=== PATIENT | male | born 1960 | race Caucasian/White ===

== ENCOUNTER 2021-11-02 16:16 | Emergency (ER) | payer OTHER ==
[~2021-11-02] VITALS: Ht 170.2 cm; Wt 79.4 kg
[2021-11-02] MEDS ORDERED: NS IV 1000 ML 1,000 ML IV STA (16:58)
[2021-11-02] MEDS ORDERED: KETOROLAC 30 MG/ML VIAL IVP ONE (17:00)
--- NOTE | 2021-11-02 17:01 | ED Abdominal Pain ---
General Stated Complaint: RLQ PAIN Source of Information: Patient Exam Limitations: No Limitations History of Present Illness Date Seen by Provider: Nov 02, 2021 Time Seen by Provider: 17:00 Initial Comments Patient is a 60-year-old male presents ED with right lower quad abdominal pain. Pain started this morning described as a dull pain. Rates pain 7 out of 10. Pain has been constant. History of kidney stones and states he possibly passed 1 2 days ago on the left side and 2 weeks ago. Pain be increased over the past hour but has improved some. Able to urinate without any difficulties. Denies flank pain, diarrhea. Did have dry heaves right before arrival. Denies chest pain, shortness of breath, cough, headache, dizziness, visual changes. Denies taking thing at home for pain Allergies and Home Medications Allergies Coded Allergies: No Known Drug Allergies (Unverified , 11/02/21) Patient Home Medication List Home Medication List Reviewed: Yes Hydrocodone/Acetaminophen (Hydrocodone-Acetamin 5-325 mg) 5 Mg-325 Mg Tablet, 1 TAB PO Q4H PRN for PAIN-MODERATE (5-7) Prescribed by: LIYAH REESE on 11/02/211818 Ondansetron (Ondansetron Odt) 4 Mg Tab.rapdis, 4 MG PO Q4H Prescribed by: LIYAH REESE on 11/02/211818 Tamsulosin HCl (Flomax) 0.4 Mg Cap, 0.4 MG PO DAILY Prescribed by: LIYAH REESE on 11/02/211818 Review of Systems Review of Systems Constitutional: No chills, No diaphoresis, No malaise EENTM: No Blurred Vision, No Eye Pain Respiratory: Denies Cough, Denies Orthopnea Cardiovascular: Denies Chest Pain Gastrointestinal: Abdominal Pain; Denies Diarrhea; Nausea; Denies Vomiting Genitourinary: Denies Burning Musculoskeletal: No back pain, No joint pain Skin: No change in color, No change in hair/nails All Other Systems Reviewed Negative Unless Noted: Yes Physical Exam Vital Signs Capillary Refill : Height/Weight/BMI Height: '" Weight: lbs. oz. kg; BMI Method: General Appearance: WD/WN, no apparent distress HEENT: PERRL/EOMI, normal ENT inspection, TMs normal, pharynx normal Neck: non-tender, full range of motion, supple, normal inspection Respiratory: chest non-tender, lungs clear, normal breath sounds, no respiratory distress Cardiovascular: regular rate, rhythm, no edema, no gallop Gastrointestinal: normal bowel sounds, soft, no organomegaly, no pulsatile mass, tenderness (Right lower quadrant tenderness) Extremities: normal range of motion, non-tender, normal inspection, no pedal edema Back: normal inspection, no CVA tenderness Neurologic/Psychiatric: turret lathe tender II-XII nml as tested, no motor/sensory deficits, alert, normal mood/affect, oriented x 3 Skin: normal color, warm/dry Progress/Results/Core Measures Results/Orders Lab Results Laboratory Tests Test 11/02/21 16:55 11/02/21 17:05 Range/Units Urine Color YELLOW Urine Clarity CLEAR Urine pH 6.0 5-9 Urine Specific [place] >=1.030 1.016-1.022 Urine Protein NEGATIVE NEGATIVE Urine Glucose (UA) NEGATIVE NEGATIVE Urine Ketones TRACE H NEGATIVE Urine Nitrite NEGATIVE NEGATIVE Urine Bilirubin NEGATIVE NEGATIVE Urine Urobilinogen 0.2 < = 1.0 MG/DL Urine Leukocyte Esterase NEGATIVE NEGATIVE Urine RBC (Auto) TRACE-I H NEGATIVE Urine RBC 10-25 H /HPF Urine WBC NONE /HPF Urine Squamous Epithelial Cells NONE /HPF Urine Crystals NONE /LPF Urine Bacteria NEGATIVE /HPF Urine Casts NONE /LPF Urine Mucus NEGATIVE /LPF Urine Culture Indicated NO White Blood Count 15.9 H 4.3-11.0 10^3/uL Red Blood Count 4.86 4.30-5.52 10^6/uL Hemoglobin 15.2 13.3-17.7 g/dL Hematocrit 45 40-54 % Mean Corpuscular Volume 93 80-99 fL Mean Corpuscular Hemoglobin 31 25-34 pg Mean Corpuscular Hemoglobin Concent 34 32-36 g/dL Red Cell Distribution Width 13.4 10.0-14.5 % Platelet Count 201 130-400 10^3/uL Mean Platelet Volume 11.9 9.0-12.2 fL Immature Granulocyte % (Auto) 0 % Neutrophils (%) (Auto) 87 H 42-75 % Lymphocytes (%) (Auto) 8 L 12-44 % Monocytes (%) (Auto) 5 0-12 % Eosinophils (%) (Auto) 0 0-10 % Basophils (%) (Auto) 0 0-10 % Neutrophils # (Auto) 13.8 H 1.8-7.8 10^3/uL Lymphocytes # (Auto) 1.2 1.0-4.0 10^3/uL Monocytes # (Auto) 0.8 0.0-1.0 10^3/uL Eosinophils # (Auto) 0.0 0.0-0.3 10^3/uL Basophils # (Auto) 0.1 0.0-0.1 10^3/uL Immature Granulocyte # (Auto) 0.1 0.0-0.1 10^3/uL Neutrophils % (Manual) 89 % Lymphocytes % (Manual) 7 % Monocytes % (Manual) 3 % Eosinophils % (Manual) 0 % Basophils % (Manual) 1 % Band Neutrophils 0 % Blood Morphology Comment NORMAL Sodium Level 143 135-145 MMOL/L Potassium Level 4.3 3.6-5.0 MMOL/L Chloride Level 109 H 98-107 MMOL/L Carbon Dioxide Level 28 21-32 MMOL/L Anion Gap 6 5-14 MMOL/L Blood Urea Nitrogen 14 7-18 MG/DL Creatinine 1.40 H 0.60-1.30 MG/DL Estimat Glomerular Filtration Rate 57 BUN/Creatinine Ratio 10 Glucose Level 105 70-105 MG/DL Calcium Level 9.8 8.5-10.1 MG/DL Corrected Calcium 9.4 8.5-10.1 MG/DL Total Bilirubin 0.6 0.1-1.0 MG/DL Aspartate Amino Transf (AST/SGOT) 20 5-34 U/L Alanine Aminotransferase (ALT/SGPT) 24 0-55 U/L Alkaline Phosphatase 97 40-136 U/L Total Protein 7.5 6.4-8.2 GM/DL Albumin 4.5 3.2-4.5 GM/DL Lipase 8 8-78 U/L My Orders Orders - TRAVIS ROUSE Urinalysis (11/02/21 16:36) Cbc With Automated Diff (11/02/21 16:58) Comprehensive Metabolic Panel (11/02/21 16:58) Lipase (11/02/21 16:58) Ct Abd/Pelvis Wo(Kidney Stone) (11/02/21 16:58) Ketorolac Injection (Toradol Injection) (11/02/21 17:00) Ns Iv 1000 Ml (Sodium Chloride 0.9%) (11/02/21 16:58) Manual Differential (11/02/21 17:05) Medications Given in ED Current Medications Medications Dose Ordered Sig/Ricco Route Start Time Stop Time Status Last Admin Dose Admin Ketorolac Tromethamine 30 mg ONCE ONCE IVP 11/02/21 17:00 11/02/21 17:01 DC 11/02/21 17:12 30 MG Departure Communication (PCP) Patient with right lower quadrant pain. History of kidney stones. Lab work showed elevated white blood count at 15. Patient creatinine 1.40 with a GFR 57. Urinalysis without evidence infection. CT abdomen and pelvis shows a 3 mm stone in the right proximal ureter with mild right hydronephrosis. Patient is able to urinate without any difficulties. Patient is currently pain-free after Toradol. Patient is not from the area. Patient in no acute distress. Will discharge with pain medication, Flomax and Zofran for nausea. Recommend importance of oral hydration. If any worsening symptoms return back to ED. Recommend following up with urology closer to your home. If any worsening symptoms return back to ED for further evaluation. Recommend recheck with primary care physician of his creatinine and kidney function with his PCP in the next 2 to 3 days. Impression Primary Impression: Ureterolithiasis Disposition: HOME, SELF-CARE Condition: Stable Departure-Patient Inst. Decision time for Depature: 18:17 Referrals: NO,LOCAL PHYSICIAN (PCP) Primary Care Physician BAKARI MARIE MD Patient Instructions: Kidney Stones (DC) Scripts Hydrocodone/Acetaminophen (Hydrocodone-Acetamin 5-325 mg) 5 Mg-325 Mg Tablet 1 TAB PO Q4H PRN for PAIN-MODERATE (5-7), #8 TAB Prov: TRAVIS ROUSE 11/02/21 Tamsulosin HCl (Flomax) 0.4 Mg Cap 0.4 MG PO DAILY, #20 CAP Prov: TRAVIS ROUSE 11/02/21 Ondansetron (Ondansetron Odt) 4 Mg Tab.rapdis 4 MG PO Q4H for Nausea, #8 TAB Prov: TRAVIS ROUSE 11/02/21 TRAVIS ROUSE Nov 02, 2021 17:01
[2021-11-02 17:10] LABS: BILIRUBIN,URINE NEGATIVE (NEGATIVE); CLARITY,URINE CLEAR; COLOR,URINE YELLOW; GLUCOSE, URINE (UA) NEGATIVE (NEGATIVE); KETONES,URINE TRACE (NEGATIVE); LEUKOCYTE ESTERASE ,URINE NEGATIVE (NEGATIVE); NITRITE,URINE NEGATIVE (NEGATIVE); PROTEIN,URINE NEGATIVE (NEGATIVE)
[2021-11-02 17:12] LABS: BASOPHILS # (AUTO) 0.1 10^3/uL (0.0-0.1); BASOPHILS % (AUTO) 0 % (0-10); EOSINOPHILS % (AUTO) 0 % (0-10); HEMATOCRIT 45 % (40-54); HEMOGLOBIN 15.2 g/dL (13.3-17.7); LYMPHOCYTES # (AUTO) 1.2 10^3/uL (1.0-4.0); LYMPHOCYTES % (AUTO) 8 % (12-44); MEAN CORPUSCULAR HEMOGLOBIN 31 pg (25-34); MEAN CORPUSCULAR HGB CONC 34 g/dL (32-36); MEAN CORPUSCULAR VOLUME 93 fL (80-99); MEAN PLATELET VOLUME 11.9 fL (9.0-12.2); MONOCYTES # (AUTO) 0.8 10^3/uL (0.0-1.0); MONOCYTES % (AUTO) 5 % (0-12); NEUTROPHILS # (AUTO) 13.8 10^3/uL (1.8-7.8); NEUTROPHILS % (AUTO) 87 % (42-75); PLATELET COUNT 201 10^3/uL (130-400); WHITE BLOOD COUNT 15.9 10^3/uL (4.3-11.0)
[2021-11-02 17:18] LABS: BACTERIA,URINE NEGATIVE /HPF
[2021-11-02 17:26] LABS: BAND NEUTROPHILS 0 %; BASOPHILS % (MANUAL) 1 %; EOSINOPHILS % (MANUAL) 0 %; LYMPHOCYTES % (MANUAL) 7 %; MONOCYTES % (MANUAL) 3 %; NEUTROPHILS % (MANUAL) 89 %; RBC MORPH NORMAL
[2021-11-02 17:29] LABS: ALBUMIN 4.5 GM/DL (3.2-4.5)
[2021-11-02 17:30] LABS: POTASSIUM 4.3 MMOL/L (3.6-5.0)
[2021-11-02 17:31] LABS: CALCIUM 9.8 MG/DL (8.5-10.1)
[2021-11-02 17:32] LABS: TOTAL PROTEIN 7.5 GM/DL (6.4-8.2)
[2021-11-02 17:34] LABS: BILIRUBIN,TOTAL 0.6 MG/DL (0.1-1.0)
[2021-11-02 17:36] LABS: CREATININE SERUM 1.4 MG/DL (0.60-1.30)
--- NOTE | 2021-11-02 17:50 | Diagnostic Imaging Report ---
PROCEDURE: CT urinary tract, rule out kidney stone. TECHNIQUE: Multiple contiguous axial images were obtained through the abdomen and pelvis without the use of intravenous contrast. Auto Exposure Controls were utilized during the CT exam to meet ALARA standards for radiation dose reduction. DATE: November 02, 2021. COMPARISON: None. INDICATION: 60-year-old male, right lower quadrant abdominal pain. FINDINGS: There are limitations for evaluation of the abdominal organs, neoplastic processes, abscess, and limited evaluation of the vasculature relating to the lack of intravenous contrast. There is mild atelectasis in the lung bases bilaterally. There are coronary artery calcifications and additional areas of atherosclerotic disease. The heart is not enlarged. There is no pericardial effusion. The liver is unremarkable in size and contour. The gallbladder is unremarkable. There is no intrahepatic or extrahepatic bile duct dilation. The main pancreatic duct is not abnormally dilated. Limited noncontrast assessment of the pancreatic parenchyma is unremarkable. The spleen is normal in size. The adrenal glands are unremarkable. There is mild right hydronephrosis. There is a stone in the right proximal ureter on axial image 114 which measures 3 mm in size. The urinary bladder is underdistended and not well evaluated. There is no identified left ureteral stone. There is a 2 mm nonobstructing left renal stone on axial image 83 and a 3 mm nonobstructing left renal stone on axial image 95. There are also punctate additional nonobstructing right renal stones. There is mild asymmetric right perinephric stranding. There is diverticulosis without evidence of acute diverticulitis. The intestinal tract is not distended. The appendix is unremarkable and is well seen. There is no free intraperitoneal air. There is no drainable fluid collection. There is no free pelvic fluid. There are atherosclerotic calcifications. There is no identified abnormally enlarged lymph node in the abdomen or pelvis which meets CT size criteria for adenopathy. There are multilevel degenerative changes of the spine. There is no identified acute bony abnormality. IMPRESSION: CT ABDOMEN AND PELVIS. 1. 3 mm stone in the right proximal ureter with mild right hydronephrosis. 2. Additional nonobstructing renal stones bilaterally. Dictated by: Dictated on workstation # [id number]
[2021-11-02] MEDS ORDERED: ACHD5005 PO (18:19)
[2021-11-02] MEDS ORDERED: TMSL.4C PO (18:19)
[2021-11-02] MEDS ORDERED: ONDA4TAB11 PO (18:19)
[2021-11-02 18:45] VITALS: BP 176/95
== END 2021-11-02 18:52 | disposition home or self-care (01) ==
LOC: ER 16:20
DX: N13.2 Hydronephrosis with renal and ureteral calculous obstruction (principal); D72.829 Elevated white blood cell count, unspecified
CPT/HCPCS: 36415; 74176; 80053; 81000; 83690; 85007; 85027